=== PATIENT | male | born 1955 | race Caucasian/White ===

== ENCOUNTER 2021-06-05 14:15 | Inpatient (IN) | payer MEDICAID ==
[~2021-06-05] VITALS: Ht 170.2 cm; Wt 83.9 kg
[2021-06-05] MEDS ORDERED: ACETAMINOPHEN ES 500 MG TABLET PO ONE (14:30)
[2021-06-05] MEDS ORDERED: CEFTRIAXONE 1 G in IV DEXTROSE 5% 50 ML IV ONE (14:30)
[2021-06-05] MEDS ORDERED: IV NORMAL SALINE 1000 ML BAG IV ONE ×2 (14:30→16:30)
[2021-06-05] MEDS ORDERED: ACETAMINOPHEN 325 MG TABLET ONE (14:34)
[2021-06-05] MEDS ORDERED: CEFTRIAXONE /D5W 50ML IVPB **ER PYXIS IV ONE (14:34)
[2021-06-05 14:47] LABS: HEMATOCRIT 38.3 % (36.7-47.1); MEAN CORPUSCULAR HEMOGLOBIN 32.6 uug (23.8-33.4); MEAN CORPUSCULAR VOLUME 93.1 fL (73.0-96.2); PLATELET COUNT (AUTO) 299 K/uL (152-348)
[2021-06-05 14:52] LABS: CREATININE 1.3 mg/dL (0.6-1.3); POTASSIUM 3.2 mmol/L (3.5-5.1)
[2021-06-05 14:58] LABS: BILIRUBIN,TOTAL 0.8 mg/dL (0.2-1.0); TOTAL PROTEIN, SERUM 7.8 g/dL (6.4-8.2)
[2021-06-05] MEDS ORDERED: DEXAMETHASONE SOD PHOSPHATE 4 MG INJ IV ONE (15:15)
[2021-06-05] MEDS ORDERED: DEXAMETHASONE SOD PHOSPHATE 10 MG INJ ONE (15:33)
[2021-06-05] MEDS ORDERED: IV 0.9% SODIUM CHLORID+ 20 KCL 1,000 ML IV ONE (16:30)
[2021-06-05] MEDS ORDERED: POTASSIUM BICARBONATE/CIT AC 25 MEQ TABLET.EFF PO ONE (16:30)
[2021-06-05] MEDS ORDERED: POTASSIUM BICARBONATE/CIT AC 25 MEQ TABLET.EFF ONE ×2 (17:00→17:22)
[2021-06-05] MEDS ORDERED: IV 0.9% SODIUM CHLORID+ 20 KCL 1,000 ML ONE (17:01)
--- NOTE | 2021-06-05 17:10 | NUR ---
DR. GARCIA ADMITTED THE PT. [facility] PENDING ON BED AVAILABILITY.
[2021-06-05] MEDS ORDERED: MAGNESIUM HYDROXIDE 30 ML LIQUID UDC PO PRN (17:15)
[2021-06-05] MEDS ORDERED: ACETAMINOPHEN 325 MG TABLET PO PRN (17:15)
[2021-06-05] MEDS ORDERED: Z GUARD REMEDY PASTE 57 GM TUBE TOP PRN (17:15)
[2021-06-05] MEDS ORDERED: ONDANSETRON 4 MG/2 ML VIAL IV PRN (17:15)
--- NOTE | 2021-06-05 18:03 | NUR ---
hospital dinner tray provided for pt.
--- NOTE | 2021-06-05 20:15 | NUR ---
Called up for report, floor busy, will call back.
[2021-06-05] MEDS ORDERED: AZITHROMYCIN IV 500 MG in IV DEXTROSE 5% 250 ML IV SCH (21:00)
[2021-06-05] MEDS: AZITHROMYCIN IV 500 MG in IV DEXTROSE 5% 250 ML IV SCH (21:00)
--- NOTE | 2021-06-05 21:30 | NUR ---
Received report form ER Nurse, Larry.
--- NOTE | 2021-06-05 22:00 | NUR ---
Received patient via gurney. AOX4. Established nurse-patient rapport. Oriented patient to room, bed and call light button. On rn cardiac rehab, showing sinus rhythm, 82bpm. Intially on 5Lpm O2 via NC, weaned down to 2Lpm, saturating at 95%. Scheduled Zithromax IV 500mg in IV D5-250ml Q24H, already given in the ER. Safety and comfort measures initiated, call light button within reach. Will continue to monitor.
[2021-06-05] MEDS: ENOXAPARIN SODIUM 40 MG/0.4 ML DISP.SYRIN SQ SCH (22:26)
[2021-06-05 22:53] VITALS: BP 117/74
--- NOTE | 2021-06-05 23:05 | NUR ---
PCR Swab done.
--- NOTE | 2021-06-05 23:10 | NUR ---
PCR swab sent to lab.
--- NOTE | 2021-06-05 23:20 | NUR ---
Patient has been constantly coughing and states that he has heart burn. Reported to personal consultant, Dr. Jackson. ordered Robitussin 10cc Q6H PRN for cough and Maalox 15cc Q6H PRN for heartburn.
[2021-06-05] MEDS ORDERED: GUAIFENESIN/DEXTROMETHORPHAN 5 ML UDC PO PRN (23:30)
[2021-06-05] MEDS ORDERED: MAG HYDROX/AL HYDROX/SIMETH 30 ML LIQUID UDC PO PRN (23:30)
[2021-06-06 04:45] VITALS: BP 112/81
--- NOTE | 2021-06-06 06:47 | NUR ---
Patient slept through the night. During the shift, patient stated that he has heart burn, Maalox 15ml PO Q6H PRN was given to relieve discomfort, medication effective. Patient was given Robitussin 10ml PO Q6H PRN to relieve cough, tolerated well. No acute distress noted at this time. All due medications were given as ordered. On 2Lpm O2, via NC, saturating at 96%. On manager monitoring, showing sinus rhythm with HR of 74bpm. IV on L FA, is still patent and intact. V/S are within normal limits. Will endorse to day shift nurse.
[2021-06-06 06:49] LABS: HEMATOCRIT 37.5 % (36.7-47.1); MEAN CORPUSCULAR HEMOGLOBIN 32.4 uug (23.8-33.4); MEAN CORPUSCULAR VOLUME 94.2 fL (73.0-96.2); PLATELET COUNT (AUTO) 312 K/uL (152-348)
[2021-06-06 07:19] LABS: *BILIRUBIN,URIN NEGATIVE (NEGATIVE); *BLOOD, URINE NEGATIVE (NEGATIVE); *CLARITY,URINE CLEAR (CLEAR); *COLOR,URINE YELLOW (YELLOW); *KETONES,URINE NEGATIVE (NEGATIVE); LEUKOCYTE ESTERASE ,URINE NEGATIVE (NEGATIVE); NITRITE, URINE NEGATIVE (NEGATIVE); UGLUCOSE NEGATIVE (NEGATIVE)
[2021-06-06 07:23] LABS: CREATININE 1.1 mg/dL (0.6-1.3); MAGNESIUM 2.4 mg/dL (1.8-2.4); PHOSPHOROUS 2.7 mg/dL (2.5-4.9); POTASSIUM 4.6 mmol/L (3.5-5.1)
[2021-06-06] MEDS: DEXAMETHASONE SOD PHOSPHATE 4 MG INJ IV SCH (08:39)
[2021-06-06 08:51] VITALS: BP 114/68
--- NOTE | 2021-06-06 09:00 | NUR ---
Received patient resting quietly in his assigned bed. Bed is in low and locked position. Patient is alert and oriented. Patient with orders for oxygen via NC, but patient took it off stating that he NC is bothering him and causing nasal irritation. Patient educated about importance of wearing NC as ordered. Patient denies Chest pain, SOB, and dyspnea. Respirations are even and unlabored, no respiratory distress noted. Patient noted with non-productive cough. Patient's oxygen saturation 94%. Patient is complaint with medication, no adverse reaction. Patient noted with normal SR on the tele monitor. patient is able to perform self care and ADL's independently. Able to tolerate food and fluids, patient reports good appetite. Denies pain or discomfort. Denies nausea, headache, vomiting.
[2021-06-06 12:00] VITALS: BP 110/67
[2021-06-06] MEDS: OSELTAMIVIR PHOSPHATE 75 MG CAPSULE PO SCH ×2 (12:23→20:16)
[2021-06-06] MEDS: CEFTRIAXONE 1 G in IV DEXTROSE 5% 50 ML IV SCH (14:34)
[2021-06-06 16:00] VITALS: BP 113/67
--- NOTE | 2021-06-06 20:00 | NUR ---
Received patient lying in bed. AAOx4. In no apparent distress. Denies any pain or SOB. O2 sat at 94% on RA. NSR on tele with HR of 67/min. IV site on left FA intact and patent. Needs assessed and attended to. COVID precaution initiated. Safety measure initiated and call dejesus within reached. Continue to monitor.
[2021-06-06] MEDS: AZITHROMYCIN IV 500 MG in IV DEXTROSE 5% 250 ML IV SCH (20:16)
[2021-06-06] MEDS: ENOXAPARIN SODIUM 40 MG/0.4 ML DISP.SYRIN SQ SCH (20:16)
[2021-06-06 20:28] VITALS: BP 103/51
[2021-06-07 00:56] VITALS: BP 100/64
[2021-06-07 04:35] VITALS: BP 103/66
--- NOTE | 2021-06-07 05:58 | NUR ---
Pt slept well last night. AAOx4. In no apparent distress. No complain of any pain or SOB. O2 sat at 95% on RA. Sinus brody on tele with HR of 57/min. IV site on left FA intact and patent. No adverse effect noted from IV antibiotic. Needs attended to and met. COVID precaution maintained. Safety measure maintained and call dejesus within reached.
[2021-06-07 07:28] LABS: HEMATOCRIT 36.4 % (36.7-47.1); MEAN CORPUSCULAR HEMOGLOBIN 31.9 uug (23.8-33.4); MEAN CORPUSCULAR VOLUME 94.2 fL (73.0-96.2); PLATELET COUNT (AUTO) 339 K/uL (152-348)
[2021-06-07 07:52] LABS: CREATININE 1.2 mg/dL (0.6-1.3); POTASSIUM 3.6 mmol/L (3.5-5.1)
[2021-06-07 08:00] VITALS: BP 108/65
[2021-06-07] MEDS: OSELTAMIVIR PHOSPHATE 75 MG CAPSULE PO SCH (09:13)
[2021-06-07] MEDS: DEXAMETHASONE SOD PHOSPHATE 4 MG INJ IV SCH (09:14)
[2021-06-07] MEDS ORDERED: OSEL75CA PO (10:22)
[2021-06-07] MEDS: CEFTRIAXONE 1 G in IV DEXTROSE 5% 50 ML IV SCH (14:00)
[2021-06-07 14:02] VITALS: BP 113/63
[2021-06-07 16:23] VITALS: BP 123/73
[2021-06-07] MEDS ORDERED: AZITHROMYCIN 250 MG TABLET PO SCH (21:00)
== END 2021-06-07 16:50 | disposition home or self-care (01) | DRG 137 ==
LOC: ER 14:15 → TRANSITION 19:10 → TELE3 21:28
PROVIDERS: ADMIT Internal Medicine; ATTEND Internal Medicine
DX: U07.1 COVID-19 (principal); J96.01 Acute respiratory failure with hypoxia; J12.82 Pneumonia due to coronavirus disease 2019; E43 Unspecified severe protein-calorie malnutrition; J15.9 Unspecified bacterial pneumonia; E88.09 Other disorders of plasma-protein metabolism, not elsewhere classified; E87.6 Hypokalemia; Z90.49 Acquired absence of other specified parts of digestive tract; E83.42 Hypomagnesemia; D64.9 Anemia, unspecified; J10.1 Influenza due to other identified influenza virus with other respiratory manifestations; Z68.29 Body mass index [BMI] 29.0-29.9, adult; J10.01 Influenza due to other identified influenza virus with the same other identified influenza virus pneumonia
CPT/HCPCS: 36415; 70030-TC; 71045; 83605; 83735; 84100; 85025; 85730; 86140; 87040; 87086; 87400; 93005; A4663; G0378; J0456; J0696; J1100; J1650; J7040; J7060; U0003